=== PATIENT | female | born 1975 | race American Indian/Alaskan Native ===

== ENCOUNTER 2018-12-01 14:29 | Emergency (ER) | payer SELFPAY ==
[2018-12-01 14:42] VITALS: BP 116/73
--- NOTE | 2018-12-01 14:42 | Event Note ---
ED Screening Note ED Screening Note: pt presents with substernal CP that began three days ago states it feels like tightness and pressure states she has been using her albuterol inhaler +nausea no vomiting no SOB PMHx asthma, depression PSHx tubal ligation +smoker +ETOH use +marijuana This initial assessment/diagnostic orders/clinical plan/treatment(s) is/are subject to change based on patients health status, clinical progression and re- assessment by fellow clinical providers in the ED. Further treatment and workup at subsequent clinical providers discretion. Patient/guardian urged not to elope from the ED as their condition may be serious if not clinically assessed and managed. Initial orders include: CP protocol no wheezing on auscultation
[2018-12-01 14:56] LABS: Basophils % (Auto) 0.7 % (0.0-1.8); Eosinophils # (Auto) 0.1 K/mm3 (0.0-0.4); Eosinophils % (Auto) 0.8 % (0.0-4.3); Hematocrit 41.7 % (30.3-42.9); Hemoglobin 14.4 gm/dl (10.1-14.3); Lymphocytes # (Auto) 3.3 K/mm3 (1.2-5.4); Mean Corpuscular HGB Conc 35 % (30-34); Mean Corpuscular Volume 91 fl (79-97); Monocytes # (Auto) 0.4 K/mm3 (0.0-0.8); Monocytes % (Auto) 6.1 % (0.0-7.3); Platelet Count 330 K/mm3 (140-440); Red Blood Count 4.59 M/mm3 (3.65-5.03); Red Cell Distribution Width 13.4 % (13.2-15.2)
[2018-12-01 15:14] LABS: Alanine Aminotransferase 12 units/L (7-56); Albumin 4.5 g/dL (3.9-5); BUN/Creatinine Ratio 14; Blood Urea Nitrogen 11 mg/dL (7-17); Calcium 9.8 mg/dL (8.4-10.2); Hemolysis Index 2
--- NOTE | 2018-12-01 15:26 | XRay Report ---
PA AND LATERAL CXR HISTORY: Chest pain. COMPARISON: None FINDINGS: Cardiomediastinal silhouette: Normal cardiac size. Normal mediastinal contours. Lungs: Normal expansion. Normal lung aeration. No pleural effusions. No pneumothorax. Pulmonary vascularity: Normal. Support hardware: None. Additional findings: None. IMPRESSION: 1. No acute cardiopulmonary process. Signer Name: Hira Howard MD Signed: 12/01/2018 3:22 PM Workstation Name: [id number]
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
[2018-12-01] MEDS ORDERED: TORADOL IV ONE (17:55)
[2018-12-01] MEDS ORDERED: BICILLIN L-A IM ONE (18:22)
[2018-12-01] MEDS ORDERED: MAGIC MOUTHWASH PO ONE (18:54)
== END 2018-12-01 19:01 | disposition home or self-care (01) ==
LOC: ED 14:29
DX: J02.9 Acute pharyngitis, unspecified (principal); J45.909 Unspecified asthma, uncomplicated; F32.9 Major depressive disorder, single episode, unspecified; F17.200 Nicotine dependence, unspecified, uncomplicated; F12.10 Cannabis abuse, uncomplicated; Z79.1 Long term (current) use of non-steroidal anti-inflammatories (NSAID); Z88.5 Allergy status to narcotic agent; Z79.899 Other long term (current) drug therapy; Z98.51 Tubal ligation status
CPT/HCPCS: 36415; 71046; 80053; 83880; 84484; 85025; 86308; 87116; 87430; 93005; 93010; 96372; 96374; 99284; J0561; J1885